=== PATIENT | male | born 1995 | race Asian ===

== ENCOUNTER 2024-03-27 14:10 | Emergency (ER) | payer OTHER ==
[2024-03-27] MEDS ORDERED: EMTR1TAB11 MT (14:57)
[2024-03-27] MEDS ORDERED: RALT400T MT (14:57)
[2024-03-27] MEDS ORDERED: TENOFOVIR 300MG TABLET PO ONE (15:00)
[2024-03-27] MEDS ORDERED: RALTEGRAVIR 400 MG TABLET PO ONE (15:00)
[2024-03-27] MEDS ORDERED: EMTRICITABINE 200MG CAPSULE PO ONE (15:45)
[2024-03-27 16:11] VITALS: PULSE 78
[2024-03-27 16:13] LABS: HEPATITIS C VIR.AB 0.06 INDEXVAL (0.00-0.80)
== END 2024-03-27 14:50 | disposition home or self-care (01) ==
LOC: ER 14:33
DX: Z04.89 Encounter for examination and observation for other specified reasons (principal)
CPT/HCPCS: 36415; 99283